=== PATIENT | female | born 1995 | race Caucasian/White ===

== ENCOUNTER 2017-07-17 11:37 | Emergency (ER) | payer MEDICAID, OTHER ==
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
[2017-07-17 12:29] VITALS: BP 129/79
[2017-07-17] MEDS ORDERED: Bacitracin Oint 1 GM U/D Packet TOP ONE (12:49)
--- NOTE | 2017-07-18 09:20 | CR ---
Ankle Min 3V Lt CLINICAL HISTORY: Pain, injury FINDINGS: The soft tissues are mildly prominent over the lateral ankle. No acute fracture or dislocat ion is noted. Ankle mortise is intact. There is a well circumscribed ovoid sclerotic focus in the dis sandra tibia which is likely a small bone island. Impression: No fracture
== END 2017-07-17 13:11 | disposition home or self-care (01) ==
LOC: JP.ED 11:37
DX: S50.311A Abrasion of right elbow, initial encounter (principal); S90.512A Abrasion, left ankle, initial encounter; Z88.1 Allergy status to other antibiotic agents; V03.90XA Pedestrian on foot injured in collision with car, pick-up truck or van, unspecified whether traffic or nontraffic accident, initial encounter; Y92.410 Unspecified street and highway as the place of occurrence of the external cause
CPT/HCPCS: 73610-26-LT; 73610-LT; 99284